=== PATIENT | male | born 1995 | race Native Hawaiian/Other Pacific Islander ===

== ENCOUNTER 2016-08-02 22:38 | Emergency (ER) | payer OTHER ==
[~2016-08-02] VITALS: Ht 188 cm; Wt 81.6 kg
[2016-08-04] MEDS ORDERED: IBUPROFEN200 M1 PO (16:11)
== END 2016-08-03 00:28 | disposition home or self-care (01) ==
LOC: ED 22:38
DX: Z00.00 Encounter for general adult medical examination without abnormal findings (principal)
CPT/HCPCS: 99281

== ENCOUNTER 2016-08-04 14:19 | Emergency (ER) | payer OTHER ==
[~2016-08-04] VITALS: Ht 190.5 cm; Wt 81.6 kg
[2016-08-04] MEDS ORDERED: IBUPROFEN200 M1 PO (16:11)
== END 2016-08-04 16:17 | disposition home or self-care (01) ==
LOC: ED 14:19
DX: M79.1 Myalgia (principal)
CPT/HCPCS: 99282

== ENCOUNTER 2017-01-26 02:30 | Emergency (ER) | payer OTHER ==
[~2017-01-26] VITALS: Ht 188 cm; Wt 88.5 kg
[~2017-01-26 02:30] MED LIST: IBUPROFEN200 M1 PO
== END 2017-01-26 03:30 | disposition home or self-care (01) ==
LOC: ED 02:30
DX: M25.512 Pain in left shoulder (principal); W01.0XXA Fall on same level from slipping, tripping and stumbling without subsequent striking against object, initial encounter
CPT/HCPCS: 99281

== ENCOUNTER 2017-04-01 03:20 | Emergency (ER) | payer OTHER ==
[~2017-04-01] VITALS: Ht 177.8 cm; Wt 87.5 kg
== END 2017-04-01 03:45 | disposition home or self-care (01) ==
LOC: ED 03:20
DX: S90.121A Contusion of right lesser toe(s) without damage to nail, initial encounter (principal)
CPT/HCPCS: 99281

== ENCOUNTER 2018-03-26 17:52 | Emergency (ER) | payer OTHER ==
[~2018-03-26] VITALS: Ht 188 cm; Wt 87.1 kg
[2018-03-26 19:30] LABS: PLATELET COUNT 209 K/uL (142-355)
[2018-03-26 19:35] LABS: POTASSIUM 4.1 mmol/L (3.6-5.2)
[2018-03-26 20:13] VITALS: BP 131/68; TEMP 98.6
== END 2018-03-26 20:15 | disposition home or self-care (01) ==
LOC: ED 17:52
PROVIDERS: Family Medicine
DX: R55 Syncope and collapse (principal)
CPT/HCPCS: 80053; 80307; 81000; 85027; 99283

== ENCOUNTER 2019-06-14 18:41 | Emergency (ER) | payer OTHER ==
[~2019-06-14] VITALS: Ht 188 cm; Wt 95.3 kg
[2019-06-14 19:57] LABS: PLATELET COUNT 207 K/uL (142-355)
[2019-06-14 23:37] VITALS: BP 138/74; TEMP 97.8
== END 2019-06-14 23:37 | disposition home or self-care (01) ==
LOC: ED 18:41
PROVIDERS: Emergency Medicine
DX: K21.9 Gastro-esophageal reflux disease without esophagitis (principal)
CPT/HCPCS: 80053; 85027; 87502; 96360; 96375; 99284; J2405; Q9963

== ENCOUNTER 2019-07-27 19:20 | Emergency (ER) | payer OTHER ==
[~2019-07-27] VITALS: Ht 188 cm; Wt 99.8 kg
[2019-07-27 20:30] VITALS: BP 142/88; TEMP 98.1
== END 2019-07-27 20:31 | disposition home or self-care (01) ==
LOC: ED 19:20
DX: M54.5 Low back pain (principal); G89.29 Other chronic pain; W10.9XXA Fall (on) (from) unspecified stairs and steps, initial encounter
CPT/HCPCS: 96372; 99283; J1885; J2930

== ENCOUNTER 2019-09-09 14:43 | Emergency (ER) | payer OTHER ==
[~2019-09-09] VITALS: Ht 188 cm; Wt 99.8 kg
[2019-09-09 15:01] VITALS: TEMP 97.8
[2019-09-09 17:57] VITALS: BP 125/78
== END 2019-09-09 17:58 | disposition home or self-care (01) ==
LOC: ED 14:43
DX: B34.9 Viral infection, unspecified (principal); J06.9 Acute upper respiratory infection, unspecified; F17.210 Nicotine dependence, cigarettes, uncomplicated
CPT/HCPCS: 87502; 87651; 99283

== ENCOUNTER 2019-09-17 02:57 | Emergency (ER) | payer OTHER ==
[~2019-09-17] VITALS: Ht 188 cm; Wt 99.8 kg
[2019-09-17 03:10] VITALS: BP 137/83; TEMP 98.1
== END 2019-09-17 03:50 | disposition home or self-care (01) ==
LOC: ED 02:57
DX: K08.89 Other specified disorders of teeth and supporting structures (principal)
CPT/HCPCS: 96372; 99283; J0696; J1885

== ENCOUNTER 2020-05-16 12:28 | Emergency (ER) | payer OTHER ==
[~2020-05-16] VITALS: Ht 185.4 cm; Wt 95.3 kg
[2020-05-16 12:41] VITALS: TEMP 98.4
[2020-05-16 13:40] VITALS: BP 130/73
== END 2020-05-16 13:40 | disposition home or self-care (01) ==
LOC: ED 12:28
DX: M25.512 Pain in left shoulder (principal); G89.29 Other chronic pain
CPT/HCPCS: 96372; 99283; J1885; J2930

== ENCOUNTER 2020-07-31 12:43 | Emergency (ER) | payer OTHER ==
[~2020-07-31] VITALS: Ht 185.4 cm; Wt 104.3 kg
[2020-07-31 13:17] LABS: PLATELET COUNT 212 K/uL (142-355)
[2020-07-31 13:31] LABS: POTASSIUM 4.2 mmol/L (3.6-5.2)
[2020-07-31 14:15] VITALS: BP 134/75; TEMP 97.1
== END 2020-07-31 14:16 | disposition home or self-care (01) ==
LOC: ED 12:43
PROVIDERS: Hospitalist
DX: J06.9 Acute upper respiratory infection, unspecified (principal); Z20.828 Contact with and (suspected) exposure to other viral communicable diseases; F17.210 Nicotine dependence, cigarettes, uncomplicated
CPT/HCPCS: 80048; 85027; 87635; 87651; 99283; U0003

== ENCOUNTER 2021-02-25 07:31 | Emergency (ER) | payer OTHER ==
[~2021-02-25] VITALS: Ht 185.4 cm; Wt 104.3 kg
[2021-02-25 07:37] VITALS: BP 110/86; TEMP 97.3
== END 2021-02-25 08:18 | disposition home or self-care (01) ==
LOC: ED 07:31
DX: J06.9 Acute upper respiratory infection, unspecified (principal); Z20.822 Contact with and (suspected) exposure to COVID-19; F17.210 Nicotine dependence, cigarettes, uncomplicated
CPT/HCPCS: 87635; 96372; 99283; J0696; J1100; U0003

== ENCOUNTER 2021-04-02 17:47 | Emergency (ER) | payer OTHER ==
[~2021-04-02] VITALS: Ht 185.4 cm; Wt 104.3 kg
[2021-04-02 20:05] VITALS: BP 148/74; TEMP 99.4
== END 2021-04-02 20:05 | disposition home or self-care (01) ==
LOC: ED 17:47
DX: S83.8X1A Sprain of other specified parts of right knee, initial encounter (principal); W17.2XXA Fall into hole, initial encounter; Y92.89 Other specified places as the place of occurrence of the external cause
CPT/HCPCS: 99282

== ENCOUNTER 2021-06-09 11:58 | Emergency (ER) | payer OTHER ==
[~2021-06-09] VITALS: Ht 185.4 cm; Wt 104.3 kg
[2021-06-09 12:05] VITALS: TEMP 97.7
[2021-06-09 12:31] LABS: PLATELET COUNT 213 K/uL (142-355)
[2021-06-09 12:47] LABS: POTASSIUM 3.8 mmol/L (3.6-5.2)
[2021-06-09 13:51] VITALS: BP 130/85
== END 2021-06-09 13:51 | disposition home or self-care (01) ==
LOC: ED 11:58
PROVIDERS: Hospitalist
DX: R10.84 Generalized abdominal pain (principal)
CPT/HCPCS: 36415; 80053; 81000; 83690; 85027; 96360; 96374; 96375; 99284; J1885; J2405

== ENCOUNTER 2021-06-24 16:00 | Emergency (ER) | payer OTHER ==
[~2021-06-24] VITALS: Ht 185.4 cm; Wt 104.3 kg
[2021-06-24 17:00] LABS: PLATELET COUNT 234 K/uL (142-355)
[2021-06-24 17:09] LABS: POTASSIUM 4.2 mmol/L (3.6-5.2)
[2021-06-24 18:56] VITALS: BP 114/62; TEMP 98.6
== END 2021-06-24 18:56 | disposition home or self-care (01) ==
LOC: ED 16:00
PROVIDERS: Emergency Medicine Emergency Medical Services
DX: R10.84 Generalized abdominal pain (principal)
CPT/HCPCS: 80048; 81000; 85027; 96360; 96361; 96375; 99284; J2270; J2405; Q9963

== ENCOUNTER 2021-12-22 09:42 | Emergency (ER) | payer OTHER ==
[~2021-12-22] VITALS: Ht 185.4 cm; Wt 104.3 kg
[2021-12-22 09:48] VITALS: BP 139/91; TEMP 97.9
== END 2021-12-22 10:24 | disposition home or self-care (01) ==
LOC: ED 09:42
DX: M25.562 Pain in left knee (principal); M25.561 Pain in right knee
CPT/HCPCS: 99282

== ENCOUNTER 2021-12-25 10:34 | Emergency (ER) | payer OTHER ==
[~2021-12-25] VITALS: Ht 185.4 cm; Wt 99.8 kg
[2021-12-25 10:40] VITALS: TEMP 97.8
[2021-12-25 11:51] LABS: PLATELET COUNT 207 K/uL (142-355)
[2021-12-25 12:05] LABS: POTASSIUM 3.7 mmol/L (3.6-5.2)
[2021-12-25 13:57] VITALS: BP 118/78
== END 2021-12-25 13:57 | disposition home or self-care (01) ==
LOC: ED 10:34
PROVIDERS: Hospitalist
DX: T39.311A Poisoning by propionic acid derivatives, accidental (unintentional), initial encounter (principal); R11.0 Nausea; X58.XXXA Exposure to other specified factors, initial encounter; Y92.89 Other specified places as the place of occurrence of the external cause
CPT/HCPCS: 36415; 80053; 80143; 80179; 80307; 80320; 81000; 85027; 85610; 85730; 93005; 96360; 99284

== ENCOUNTER 2022-02-09 15:01 | Outpatient (CLI) | payer BC | END 2022-02-09 18:52 | disposition home or self-care (01) | LOC: RAD 15:01 | PROVIDERS: ATTEND Nurse Practitioner Family | DX: M54.59 Other low back pain (principal) ==

== ENCOUNTER 2023-03-05 13:18 | Emergency (ER) | payer BC ==
[~2023-03-05] VITALS: Ht 185.4 cm; Wt 108.9 kg
[2023-03-05 14:48] VITALS: BP 136/78; TEMP 98.9
== END 2023-03-05 14:50 | disposition home or self-care (01) ==
LOC: ED 13:18
DX: S96.911A Strain of unspecified muscle and tendon at ankle and foot level, right foot, initial encounter (principal); M19.90 Unspecified osteoarthritis, unspecified site; X58.XXXA Exposure to other specified factors, initial encounter; F17.210 Nicotine dependence, cigarettes, uncomplicated
CPT/HCPCS: 96372; 99283; J1885; J2930